=== PATIENT | female | born 1955 | race Caucasian/White ===

== ENCOUNTER 2017-11-19 07:53 | Emergency (ER) | payer BC ==
[2017-11-19] MEDS ORDERED: NS 0.9% 1000 ML* 1,000 ML IV ONE (08:39)
[2017-11-19] MEDS ORDERED: Morphine INJ* 10 MG/ML 1 ML CARPUJECT IV ONE (08:42)
[2017-11-19] MEDS ORDERED: Metoclopramide IV* 5 MG/ML 2 ML VIAL IV ONE (08:42)
[2017-11-19 09:18] LABS: ABS Basophils 0 10^3/ul (0-0.2); ABS Eosinophils 0.1 10^3/ul (0-0.6); ABS Lymphocytes 1.3 10^3/ul (1.0-4.8); ABS Monocytes 0.6 10^3/ul (0-0.8); ABS Neutrophils 8.7 10^3/ul (1.5-7.7); ABS Nucleated RBC 0 10^3/ul; Eosinophil % 1.2 % (0-6); Hematocrit 38 % (35-47); Hemoglobin 12.8 g/dl (12.0-16.0); Mean Corpuscular HGB Conc 34 g/dl (31-36); Mean Corpuscular Hemoglobin 30 pg (27-31); Mean Corpuscular Volume 88 fL (80-97); Mean Platelet Volume 8.9 um3 (7.4-10.4); Nucleated Red Blood Cells % 0.1; Platelet Count 224 10^3/ul (150-450); Red Blood Count 4.28 10^6/ul (4.0-5.4); Red Cell Distribution Width 13 % (10.5-15); White Blood Count 10.8 10^3/ul (3.5-10.8)
[2017-11-19 09:21] LABS: Urine Appearance Clear; Urine Blood 1+ (Negative); Urine Color Straw; Urine Ketones Negative (Negative); Urine Protein Negative (Negative); Urine Specific Gravity 1.005 (1.010-1.030); Urine Urobilinogen Negative (Negative)
[2017-11-19 09:35] LABS: EGFR Non-African American 70.1 (>60)
[2017-11-19] MEDS ORDERED: Iohexol 300* (CONTRAST) 10 ML SDV IV ONE (10:46)
--- NOTE | 2017-11-19 11:45 | RAD ---
CLINICAL HISTORY: Lower abdominal pain COMPARISON: None TECHNIQUE: Multiple contiguous axial CT scans were obtained of the abdomen and pelvis after the administration of intravenous contrast. Coronal and sagittal multiplanar reformations are submitted for review. Oral contrast was administered. Delayed images were obtained through the abdomen and pelvis. FINDINGS: LUNG BASES: The lung bases are clear. LIVER: There is a simple cyst of the liver. BILE DUCTS: There is no intrahepatic or extrahepatic biliary dilatation. GALLBLADDER: The gallbladder is normal, without pericholecystic inflammatory change. PANCREAS: The pancreas is normal, without mass or ductal dilatation. SPLEEN: Normal in size and appearance. UPPER GI TRACT: Evaluation of the gastrointestinal tract is limited by incomplete gastric distention. The upper GI tract is unremarkable. SMALL BOWEL AND MESENTERY: The small bowel is normal in contour, course, and caliber. There is no obstruction or dilatation. COLON: There is mucosal thickening of the rectum and distal sigmoid colon. There is a diverticulum of the distal sigmoid colon. There is straightening of the pelvic floor fascia with a small amount of pericolonic fluid tracking along the fascia. ADRENALS: Normal bilaterally. KIDNEYS: The kidneys are normal in shape, size, contour, and axis. There is no hydronephrosis or nephrolithiasis. BLADDER: The bladder is smooth in contour. PELVIC ORGANS: The pelvic organs are not visualized. AORTA: There is mild calcific atherosclerotic disease of the abdominal aorta and its branches, without aneurysmal dilatation IVC: Unremarkable LYMPH NODES: There is no lymphadenopathy by size criteria. ABDOMINAL WALL: There is no evidence for abdominal wall hernia. BONES AND SOFT TISSUES: Degenerative changes are noted of the spine most pronounced at L5-S1 OTHER: None IMPRESSION: THERE IS MUCOSAL THICKENING OF THE DISTAL SIGMOID COLON AND RECTUM WITH PERICOLONIC INFLAMMATORY CHANGE CONSISTENT WITH COLITIS/PROCTITIS, THOUGH DIVERTICULITIS IS WITHIN THE DIFFERENTIAL THERE IS A DIVERTICULUM OF THE DISTAL SIGMOID COLON IN THIS REGION. THERE IS NO LOCULATED FLUID COLLECTION TO SUGGEST ABSCESS.
[2017-11-19] MEDS ORDERED: metroNIDAZOLE TAB* 250 MG PO ONE (12:05)
[2017-11-19] MEDS ORDERED: Ciprofloxacin TAB* 500 MG PO ONE (12:05)
[2017-11-19 12:38] VITALS: BP 159/79
--- NOTE | 2017-11-19 13:54 | ED ---
Corey Bryson Julia, scribed for Alida Calderón MD on 11/19/17 at 0812 . Abdominal Pain/Female - HPI Summary HPI Summary: This patient is a 62 year old F presenting to [facility] accompanied by with a chief complaint of sudden lower abdominal pain since 01:00 today upon waking up that is worse on the right. Patient reports, chills, and body aches on that are currently resolved. She reports current low back pain. Patient denies dysuria, vomiting, CP, and SOB. PMHx includes a hysterectomy and appendectomy. Medications reviewed with patient. - History of Current Complaint Chief Complaint: EDAbdPain Stated Complaint: ABD PAIN Hx Obtained From: Patient ?: No - hysterectomy Onset/Duration: Sudden Onset, Lasting Hours Timing: Constant Pain Intensity: 6 Pain Scale Used: 0-10 Numeric Location: Discrete At: RLQ, Other - lower abdomen Radiates: Yes Radiates to: Back Aggravating Factor(s): Other: - jumping/bumping Associated Signs and Symptoms: Positive: Fever, Back Pain. Negative: Chest Pain , Urinary Symptoms, Vomiting Allergies/Adverse Reactions: Allergies Allergy/AdvReac Type Severity Reaction Status Date / Time amoxicillin [From Augmentin] Allergy Diarrhea Verified 11/19/17 07:55 clavulanic acid Allergy Diarrhea Verified 11/19/17 07:55 [From Augmentin] Home Medications: Home Medications Aspirin EC TAB* [Ecotrin EC TAB*] 325 mg PO DAILY 11/19/17 [History Confirmed ] Cetirizine* [ZyrTEC 10 MG TAB*] 10 mg PO DAILY 11/19/17 [History Confirmed 11/19] Folic Acid TAB* [Folvite TAB*] 400 mcg PO DAILY 11/19/17 [History Confirmed ] Pyridoxine TAB* [Vitamin B6 TAB*] 100 mg PO DAILY 11/19/17 [History Confirmed ] Ranitidine TAB (NF) [Zantac TAB (NF)] 150 mg PO DAILY 11/19/17 [History Confirmed 11/19/17] PMH/Surg Hx/FS Hx/Imm Hx Endocrine/Hematology History: Reports: Other Endocrine/Hematological Disorders - antiphospholipid syndrome, currently resolved - Surgical History Surgery Procedure, Year, and Place: hysterectomy. appendectomy Infectious Disease History: No Infectious Disease History: Denies: Traveled Outside the [place] in Last 30 Days - Social History Occupation: Employed Full-time Alcohol Use: Daily Alcohol Amount: 2 beers, denies withdrawl symptoms without etoh use Substance Use Type: Reports: None Smoking Status (MU): Former Smoker Review of Systems Positive: Chills Negative: Chest Pain Negative: Shortness Of Breath Positive: Abdominal Pain. Negative: Vomiting Negative: dysuria Positive: Myalgia - back pain, body aches All Other Systems Reviewed And Are Negative: Yes Physical Exam - Summary Physical Exam Summary: GENERAL: Patient is a well developed and nourished F who is lying comfortable in the stretcher. Patient is not in any acute respiratory distress. HEAD AND FACE: Normocephalic EYES: PERRLA, EOMI x 2. EARS: Hearing grossly intact. MOUTH: Oropharynx within normal limits. NECK: Supple, trachea is midline, no adenopathy, no JVD, no carotid bruit. CHEST: Symmetric, no tenderness at palpation LUNGS: Clear to auscultation bilaterally. No wheezing or crackles. CVS: Regular rate and rhythm, S1 and S2 present, no murmurs or gallops appreciated. ABDOMEN: Soft,with diffuse tenderness with palpation that is worse in the RLQ. Bowel sounds are normal. No abdominal abnormal pulsations. EXTREMITIES: Full ROM in all major joints, no edema, no cyanosis or clubbing. NEURO: Alert and oriented x 3. No acute neurological deficits. Speech is normal and follows commands. SKIN: Dry and warm Triage Information Reviewed: Yes Vital Signs On Initial Exam: Initial Vitals Temp Pulse Resp BP Pulse Ox 98 F 91 16 181/100 98 11/19/17 07:59 11/19/17 07:59 11/19/17 07:59 11/19/17 07:59 11/19/17 07:59 Vital Signs Reviewed: Yes Diagnostics - Vital Signs Vital Signs Temp Pulse Resp BP Pulse Ox 11/19/17 07:59 98 F 91 16 181/100 98 - Laboratory Lab Results: Lab Results 11/19/17 11/19/17 11/19/17 Range/Units 08:50 08:53 08:53 WBC 10.8 (3.5-10.8) 10^3/ul RBC 4.28 (4.0-5.4) 10^6/ul Hgb 12.8 (12.0-16.0) g/dl Hct 38 (35-47) % MCV 88 (80-97) fL MCH 30 (27-31) pg MCHC 34 (31-36) g/dl RDW 13 (10.5-15) % Plt Count 224 (150-450) 10^3/ul MPV 8.9 (7.4-10.4) um3 Neut % (Auto) 80.8 (38-83) % Lymph % (Auto) 12.0 L (25-47) % Barry % (Auto) 5.6 (0-7) % Eos % (Auto) 1.2 (0-6) % Baso % (Auto) 0.4 (0-2) % Absolute Neuts (auto) 8.7 H (1.5-7.7) 10^3/ul Absolute Lymphs (auto) 1.3 (1.0-4.8) 10^3/ul Absolute Monos (auto) 0.6 (0-0.8) 10^3/ul Absolute Eos (auto) 0.1 (0-0.6) 10^3/ul Absolute Basos (auto) 0 (0-0.2) 10^3/ul Absolute Nucleated RBC 0 10^3/ul Nucleated RBC % 0.1 Sodium 139 (139-145) mmol/L Potassium 4.0 (3.5-5.0) mmol/L Chloride 105 (101-111) mmol/L Carbon Dioxide 27 (22-32) mmol/L Anion Gap 7 (2-11) mmol/L BUN 13 (6-24) mg/dL Creatinine 0.83 (0.51-0.95) mg/dL Est GFR ( Amer) 90.2 (>60) Est GFR (Non-Af Amer) 70.1 (>60) BUN/Creatinine Ratio 15.7 (8-20) Glucose 99 (70-100) mg/dL Lactic Acid (0.5-2.0) mmol/L Calcium 9.1 (8.6-10.3) mg/dL Total Bilirubin 0.50 (0.2-1.0) mg/dL AST 21 (13-39) U/L ALT 19 (7-52) U/L Alkaline Phosphatase 79 (34-104) U/L C-Reactive Protein 80.39 H (< 5.00) mg/L Total Protein 7.4 (6.4-8.9) g/dL Albumin 4.0 (3.2-5.2) g/dL Globulin 3.4 (2-4) g/dL Albumin/Globulin Ratio 1.2 (1-3) Lipase 16 (11.0-82.0) U/L Urine Color Straw Urine Appearance Clear Urine pH 6.0 (5-9) Ur Specific [place] 1.005 L (1.010-1.030) Urine Protein Negative (Negative) Urine Ketones Negative (Negative) Urine Blood 1+ A (Negative) Urine Nitrate Negative (Negative) Urine Bilirubin Negative (Negative) Urine Urobilinogen Negative (Negative) Ur Leukocyte Esterase Negative (Negative) Urine WBC (Auto) Absent (Absent) Urine RBC (Auto) Trace(0-2/hpf) (Absent) Ur Squamous Epith Cells Present A (Absent) Urine Bacteria Absent (Absent) Urine Glucose Negative (Negative) 11/19/17 Range/Units 08:53 WBC (3.5-10.8) 10^3/ul RBC (4.0-5.4) 10^6/ul Hgb (12.0-16.0) g/dl Hct (35-47) % MCV (80-97) fL MCH (27-31) pg MCHC (31-36) g/dl RDW (10.5-15) % Plt Count (150-450) 10^3/ul MPV (7.4-10.4) um3 Neut % (Auto) (38-83) % Lymph % (Auto) (25-47) % Barry % (Auto) (0-7) % Eos % (Auto) (0-6) % Baso % (Auto) (0-2) % Absolute Neuts (auto) (1.5-7.7) 10^3/ul Absolute Lymphs (auto) (1.0-4.8) 10^3/ul Absolute Monos (auto) (0-0.8) 10^3/ul Absolute Eos (auto) (0-0.6) 10^3/ul Absolute Basos (auto) (0-0.2) 10^3/ul Absolute Nucleated RBC 10^3/ul Nucleated RBC % Sodium (139-145) mmol/L Potassium (3.5-5.0) mmol/L Chloride (101-111) mmol/L Carbon Dioxide (22-32) mmol/L Anion Gap (2-11) mmol/L BUN (6-24) mg/dL Creatinine (0.51-0.95) mg/dL Est GFR ( Amer) (>60) Est GFR (Non-Af Amer) (>60) BUN/Creatinine Ratio (8-20) Glucose (70-100) mg/dL Lactic Acid 1.1 (0.5-2.0) mmol/L Calcium (8.6-10.3) mg/dL Total Bilirubin (0.2-1.0) mg/dL AST (13-39) U/L ALT (7-52) U/L Alkaline Phosphatase (34-104) U/L C-Reactive Protein (< 5.00) mg/L Total Protein (6.4-8.9) g/dL Albumin (3.2-5.2) g/dL Globulin (2-4) g/dL Albumin/Globulin Ratio (1-3) Lipase (11.0-82.0) U/L Urine Color Urine Appearance Urine pH (5-9) Ur Specific [place] (1.010-1.030) Urine Protein (Negative) Urine Ketones (Negative) Urine Blood (Negative) Urine Nitrate (Negative) Urine Bilirubin (Negative) Urine Urobilinogen (Negative) Ur Leukocyte Esterase (Negative) Urine WBC (Auto) (Absent) Urine RBC (Auto) (Absent) Ur Squamous Epith Cells (Absent) Urine Bacteria (Absent) Urine Glucose (Negative) Result Diagrams: 11/19/17 08:53 11/19/17 08:53 Lab Statement: Any lab studies that have been ordered have been reviewed, and results considered in the medical decision making process. Re-Evaluation - Re-Evaluation 1 Re-Evaluation Time: 11:55 Comment: Pt is informed with results. Abdominal Pain Fem Course/Dx - Course Course Of Treatment: 62 y/o F presents to ED with abdominal pain. Workup remarkable for elevated C reactive protein at 80.9. CT A/P concerning for colitis vs. diverticulitis. Discussed resutls with paitent in great details. She was give 1 L of IV fluids, Morphine, and Zofran. Pt reports feeling a lot better. Given first dose of Cipro and Flagyl abx here in ED. She was subsequently discharged with 14 day course of abx, pain medication, and Zofran. She was intsructed to follow up with GI. Pt is hemodynamically stable and safe for discharge. Return precautions given - Diagnoses Provider Diagnoses: Colitis Discharge - Sign-Out/Discharge Documenting (check all that apply): Discharge/Admit/Transfer - Discharge Plan Condition: Stable Disposition: HOME Prescriptions: Ciprofloxacin HCl [Cipro] 500 mg PO BID 14 Days #28 tablet metroNIDAZOLE [Flagyl] 500 mg PO TID 14 Days #42 tablet Ondansetron [Zofran Odt] 4 mg PO Q8HR 3 Days #9 tab.rapdis oxyCODONE/Acetam5/325MG PREPAK [Percocet 5/325 TAB*] 1 tab PO Q6HR PRN #12 tab MDD 4 PRN Reason: Pain Patient Education Materials: Diverticulitis (ED), Colitis (ED) Forms: *Work Release Referrals: Edson Luna MD [Medical Doctor] - 1 Week (Follow up with Dr. Luna, regarding your results today. ) - Billing Disposition and Condition Condition: STABLE Disposition: HOME The documentation as recorded by the Corey lopez Julia accurately reflects the service I personally performed and the decisions made by me, Alida Calderón MD.
== END 2017-11-19 12:35 | disposition home or self-care (01) ==
LOC: ED 07:53
DX: K52.9 Noninfective gastroenteritis and colitis, unspecified (principal); Z87.891 Personal history of nicotine dependence
CPT/HCPCS: 36415; 74177; 80053; 81003; 81015; 83605; 83690; 85025; 86140; 87040; 96360; 96374; 96375; 99283; A9270-GY; Q9967

== ENCOUNTER 2018-03-08 08:21 | Emergency (ER) | payer BC ==
--- OUTSIDE RECORDS SUMMARY | 2018-03-08 08:40 | XMS REPORT ---
:1955 External Reference #:[id number] Author Organization [employer] Address [address] [place] [address] [place] [address] Phone [phone] Care Team Providers Name Role Phone Mal Fisher MD Primary Care Physician Unavailable Payers Type Date Identification Numbers Payment Provider Subscriber Commercial Policy Number: [id number] [employer]ets Rashawn Martins PayID: [id number] [address] [address] [place] [address] Problems Description No Information Family History Date Family Member(s) Problem(s) Comments General Cancer General Diabetes General Heart Disease Social History Type Date Description Comments Lives With Boyfriend Occupation Nurse ETOH Use Consumes 1 six pack of beer per day Smoking Patient is a former smoker Exercise Type/Frequency Exercises sporadically Allergies, Adverse Reactions, Alerts Date Description Reaction Status Severity Comments 01/03/2018 Augmentin active 01/03/2018 Cipro active 01/03/2018 Flagyl active 01/03/2018 NKDA inactive Medications Medication Date Status Form Strength Qnty SIG Indications Ordering Provider Folic Acid Active Tablets 800mcg Unknown 000 Vitamin B6 Active Tablets 100mg 1/2 by Unknown 000 mouth every day Aspirin Active Tablets DR 325mg take 1 Unknown 000 daily Aleve Active Tablets 220mg 2 tablets Unknown 000 bid Oxycodone-Neel Hx Tablets 5-325mg 30tabs 1-2 by Ramin Huitron taminophen 018 - mouth Edison, every 4-6 018 hours as needed for post-op pain. max 10 per day Aspirin 06/20/[address] 325mg 30tabs 1 tab bid Ramin Huitron 018 - x 14 days Edison MD Diaz Aspirin Hx Tablets DR 325mg take 1 by Unknown 000 - mouth once a day for 018 two weeks Allergy 0 Hx Tablets 10mg Unknown Relief 000 - 018 Zantac 75 Hx Tablets 150mg take 1 tab Unknown 000 - by mouth at at 018 bedtime Flexeril Hx 10mg 1 q 8 hr Unknown 000 - prn 018 Tramadol HCL Hx Tablets 50mg 1-2 Unknown 000 - tablets by mouth 018 every 6 hours as needed pain Vital Signs Date Vital Result Comment 02/28/2018 Height 64 inches 5'4" Weight 239.00 lb Heart Rate 76 /min BP Systolic Recheck 128 mmHg BP Diastolic Recheck 84 mmHg Respiratory Rate 16 /min Body Temperature 977.0 F BMI (Body Mass Index) 41.0 kg/m2 01/31/2018 Height 64 inches 5'4" Weight 239.00 lb Heart Rate 80 /min BP Systolic Recheck 126 mmHg BP Diastolic Recheck 84 mmHg Respiratory Rate 16 /min Body Temperature 97.9 F BMI (Body Mass Index) 41.0 kg/m2 01/03/2018 Height 64 inches 5'4" Weight 239.00 lb Heart Rate 76 /min BP Systolic Recheck 126 mmHg BP Diastolic Recheck 84 mmHg Respiratory Rate 16 /min Body Temperature 97.9 F BMI (Body Mass Index) 41.0 kg/m2 Results Test Date Test Result H/L Range Note Laboratory test 01/12/2018 Surgical Pathology SEE RESULT BELOW 1 finding 1 SEE RESULT BELOW Name: RASHAWN MARTINS : [address]: Ramin Hogan MD Acct: [id number] Unit: [id number] AGE: 62 Location: OR Re01/12/18 SEX: F Status: REG SDC SPEC: [id number] NELSON: 01/12/18 [facility] [address]: Ramin Hogan MD REQ: [id number] RECD: 01/12/18 STATUS: SOUT _ ORDERED: LEVEL 3 FINAL DIAGNOSIS Knee, right, excision: -- Benign cartilaginous tissue. PRE-OPERATIVE DIAGNOSIS Right knee osteoarthritis, pain, possible loose body. GROSS DESCRIPTION The specimen is received in formalin labeled, Loose Body Right Knee, and consists of two silva-pink irregular rubbery fibrocartilaginous soft tissue fragments aggregating 0.6 x 0.5 by up to 0.2 cm which are entirely submitted in one cassette. Signed by and Reported on: Stefania Wheeler MD 01/14/18 1137 END OF REPORT DEPARTMENT OF PATHOLOGY, [address] [place] [address] Nacho Pan M.D. Director [facility] # [id number] Procedures Date CPT Code Description Status 01/12/2018 34187 Arthroscopy,Knee,Meniscectomy Medial Or Lateral Completed 01/12/2018 79355 Arthroscopy,Knee,Meniscectomy Medial Or Lateral Completed Encounters Type Date Location Provider CPT E/M Dx Office Visit 01/03/2018 [facility] Ramin Hogan, [address] M25.561 9:00a Of [facility] AT [facility] [place] M23.41 M17.11 Plan of Care Future Appointment(s):03/21/2018 9:15 am - Ramin Hogan MD at [facility] AT Kfqhdqku38/06/2018 - Ramin Hogan, [id number] Oth tear of medial meniscus, current injury, r knee, subsFollow up: Follow up: 4 [id number] Loose body in knee, right kneeM17.11 Unilateral primary osteoarthritis, right knee
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
[2018-03-08] MEDS ORDERED: Lidocaine 1%* 5 ML VIAL INJ ONE ×2 (10:00→12:00)
--- NOTE | 2018-03-08 10:29 | RAD ---
INDICATION: Possible aspiration. COMPARISON: November 19, [address] TECHNIQUE: Dual energy PA and routine lateral views of the chest were obtained. REPORT: Clear lungs and pleural spaces. Negative for pneumothorax. The heart, pulmonary vasculature, and mediastinal contours are unremarkable. Negative for free air beneath the diaphragm. Unremarkable osseous structures and soft tissue contours. IMPRESSION: #. No evidence for acute intrathoracic disease.
[2018-03-08] MEDS ORDERED: Piperacillin/Tazobac ADVAN(*) 3.375 GM in NS 0.9% 100 ML* 100 ML IVPB ONE (14:27)
--- NOTE | 2018-03-08 15:28 | PN ---
Progress Note - Progress Note Date of Service: 03/08/18 Note: Laceration repair: 7 cm, gaping, dirty laceration noted to left upper arm on the volar aspect. Wound was extensively irrigated with a liter of normal saline and scrubbed with Betadine. Typical sterile fashion was used. Wound was loosely approximated with 9 nylon 4-0 sutures. 2 cm linear laceration noted to the left mid lateral aspect of leg was also extensively irrigated and cleaned. 3 4-0 nylon sutures were placed. There are 2 superficial, linear, 1 cm lacerations noted in between the second and third toes of right foot extending slightly to the foot. These 2 wounds were cleaned in the same fashion and approximated with Steri-Strips.
[2018-03-08 15:44] VITALS: BP 118/68
== END 2018-03-08 15:42 | disposition home or self-care (01) ==
LOC: ED 08:21
DX: S41.122A Laceration with foreign body of left upper arm, initial encounter (principal); S71.122A Laceration with foreign body, left thigh, initial encounter; S91.311A Laceration without foreign body, right foot, initial encounter; T14.8XXA Other injury of unspecified body region, initial encounter; X58.XXXA Exposure to other specified factors, initial encounter; Y93.89 Activity, other specified; Y92.833 Campsite as the place of occurrence of the external cause; Z88.1 Allergy status to other antibiotic agents; Z88.0 Allergy status to penicillin; Z87.891 Personal history of nicotine dependence
CPT/HCPCS: 12034; 71046; 99282; J2543

== ENCOUNTER 2020-03-28 08:07 | Inpatient (IN) ==
[~2020-03-28 08:07] MED LIST: Buffered Lidocaine 1% SYRIN 1 ml INTRADERM ONE; Bupivacaine 0.5% SDV PF 30ML VIAL ONE; EPHEDrine (Pressors) 50 MG/ML VIAL ONE; Famotidine IV 10 MG/ML 2 ml VIAL (20 mg) IV ONE; Lactated Ringers 1000 ml BAG 1,000 ML IV SCH; Phenylephrine 40 mcg/mL 10mL (400mcg) SYRINGE ONE; Propofol 10 MG/ML 20 ML BTL ONE; Rocuronium 50 mg VIAL 10 mg/ml 5 ml VIAL (50 mg) ONE; Sodium Citrate/Citric Acid LIQ 15 ML UDC PO ONE; Sterile Water for Inj 10 ML ONE
[2020-03-28] MEDS ORDERED: Midazolam 5 mg/5 ml VIAL 1 mg/ml 5 ml VIAL (5 mg) ONE (08:34)
[2020-03-28] MEDS ORDERED: Buffered Lidocaine 1% SYRIN 1 ml INTRADERM ONE (08:41)
[2020-03-28] MEDS ORDERED: Famotidine IV 10 MG/ML 2 ml VIAL (20 mg) ONE (08:41)
[2020-03-28] MEDS ORDERED: ROPIVACAINE 5 MG/ML 30 ML BTL (0.5%) ONE ×2 (08:46→09:00)
[2020-03-28] MEDS ORDERED: Lidocaine 1% MPF 5 ML VIAL ONE (09:00)
[2020-03-28] MEDS ORDERED: ceFAZolin 2 GM PREMIX 2 GM/50 ML BAG ONE (10:17)
[2020-03-28] MEDS ORDERED: Naloxone 0.4 mg VIAL 0.4 mg/ml 1 ml VIAL IV PRN (11:09)
[2020-03-28] MEDS ORDERED: HYDROmorphone 1 MG/1 ML SYRINGE IV PRN (11:09)
[2020-03-28] MEDS ORDERED: Ondansetron 4 mg VIAL 2 MG/ML 2 ml VIAL IV PRN ×2 (11:09→12:58)
[2020-03-28] MEDS ORDERED: fentaNYL 100 mcg/2 ml 50 MCG/ML VIAL IV PRN (11:09)
[2020-03-28] MEDS ORDERED: Propofol 10 MG/ML 20 ML BTL ONE (11:33)
[2020-03-28] MEDS ORDERED: oxyCODONE/Acetamin 5/325 mg TAB PO PRN (12:58)
[2020-03-28] MEDS ORDERED: Ondansetron ODT 4 mg TAB 4 MG TAB PO PRN (12:58)
[2020-03-28] MEDS ORDERED: Lactulose 30 ml UDC PO PRN (12:58)
[2020-03-28] MEDS ORDERED: Morphine 2 MG/ML SYRINGE IV PRN (12:58)
[2020-03-28] MEDS ORDERED: Polyethylene Glycol 3350 17 GM PACKET PO PRN (12:58)
[2020-03-28] MEDS ORDERED: Magnesium Hydroxide LIQ 30 ML UDC PO PRN (12:58)
[2020-03-28] MEDS ORDERED: diPHENhydraMINE IV 50 MG/ML 1 ml VIAL (BENADRYL) IV PRN (12:58)
[2020-03-28] MEDS ORDERED: diPHENhydraMINE 25 mg TAB PO PRN (12:58)
[2020-03-28] MEDS: oxyCODONE/Acetamin 5/325 mg TAB PO PRN (17:49)
[2020-03-28] MEDS: ceFAZolin 1 GM ADVAN 1 GM in NS 0.9% 50 ML 50 ML IVPB SCH (19:01)
[2020-03-28] MEDS: Magnesium Hydroxide LIQ 30 ML UDC PO SCH (20:37)
[2020-03-29] MEDS: Lactated Ringers 1000 ml BAG 1,000 ML IV SCH ×2 (02:14→10:46)
[2020-03-29] MEDS: ceFAZolin 1 GM ADVAN 1 GM in NS 0.9% 50 ML 50 ML IVPB SCH ×2 (02:14→10:46)
[2020-03-29] MEDS ORDERED: NS 0.9% 1000 ml BAG 1,000 ML IV ONE (05:30)
[2020-03-29 06:04] LABS: Hematocrit 28 % (35-47); Hemoglobin 9.7 g/dL (12.0-16.0); Mean Platelet Volume 9.1 fL (7.4-10.4); Platelet Count 164 10^3/uL (150-450)
[2020-03-29 06:25] LABS: BUN/Creatinine Ratio 17.7 (8-20); Calcium 8.3 mg/dL (8.6-10.3); EGFR African American 89.2 (>60); EGFR Non-African American 73.7 (>60); Potassium 3.9 mmol/L (3.5-5.0)
[2020-03-29] MEDS: oxyCODONE/Acetamin 5/325 mg TAB PO PRN (07:57)
[2020-03-29] MEDS ORDERED: Vitamin THERAPEUTIC TAB PO SCH (09:00)
[2020-03-29] MEDS ORDERED: Aspirin EC 325 mg TAB.EC PO SCH (09:00)
[2020-03-29] MEDS: Magnesium Hydroxide LIQ 30 ML UDC PO SCH (09:28)
[2020-03-29] MEDS ORDERED: Lactated Ringers 500 ml BAG 500 ML IV SCH (10:00)
[2020-03-29] MEDS ORDERED: Lactated Ringers 500 ml BAG 500 ML IV ONE (10:15)
[2020-03-29 11:37] VITALS: BP 130/63
[2020-03-29] MEDS ORDERED: HYDROcodone/ACETAMIN 5/325 mg TAB PO PRN ×2 (11:44→11:45)
== END 2020-03-29 14:42 | disposition home or self-care (01) | DRG 302 ==
LOC: AA 08:07 → SSU 15:40
PROVIDERS: ADMIT Orthopaedic Surgery Adult Reconstructive Orthopaedic Surgery; ATTEND Orthopaedic Surgery Adult Reconstructive Orthopaedic Surgery

== ENCOUNTER 2023-07-23 12:23 | Observation (INO) ==
[~2023-07-23 12:23] MED LIST changes: -Buffered Lidocaine 1% SYRIN 1 ml INTRADERM ONE; -Bupivacaine 0.5% SDV PF 30ML VIAL ONE; -EPHEDrine (Pressors) 50 MG/ML VIAL ONE; -Famotidine IV 10 MG/ML 2 ml VIAL (20 mg) IV ONE; +Iodixanol 320 (CONTRAST) 100 ML SDV IV ONE; -Lactated Ringers 1000 ml BAG 1,000 ML IV SCH; -Phenylephrine 40 mcg/mL 10mL (400mcg) SYRINGE ONE; -Propofol 10 MG/ML 20 ML BTL ONE; -Rocuronium 50 mg VIAL 10 mg/ml 5 ml VIAL (50 mg) ONE; -Sodium Citrate/Citric Acid LIQ 15 ML UDC PO ONE; -Sterile Water for Inj 10 ML ONE
[2023-07-23] MEDS ORDERED: Lactated Ringers 1000 ml BAG 1,000 ML IV ONE (12:40)
[2023-07-23 13:05] LABS: ABS Basophils 0.1 10^3/uL (0.0-0.1); ABS Eosinophils 0.2 10^3/uL (0.0-0.5); ABS Lymphocytes 1.6 10^3/uL (1.0-4.8); ABS Monocytes 0.5 10^3/uL (0.0-0.9); Eosinophil % 2.5 %; Hematocrit 39.3 % (35-45); Hemoglobin 13.3 g/dL (11.5-14.3); Mean Corpuscular Hemoglobin 29.5 pg (27-33); Mean Corpuscular Hgb Conc 33.9 g/dL (31-36); Mean Corpuscular Volume 87.1 fL (80-97); Mean Platelet Volume 8.4 fL (7.5-11.2); Nucleated Red Blood Cells % 0.1 %/100WBC (0.0-0.8); Platelet Count 272 10^3/uL (150-450); Red Blood Count 4.51 10^6/uL (3.63-4.92); White Blood Count 8.4 10^3/uL (3.8-11.8)
[2023-07-23 13:15] LABS: Activated Partial Thrombo Time 28.1 seconds (26.0-38.0); INR 0.96 (0.83-1.13)
[2023-07-23 13:18] LABS: Albumin 4.5 g/dL (3.2-5.2); Albumin/Globulin Ratio 1.3 (1-3); Calcium 9.1 mg/dL (8.6-10.3); Creatinine, Serum 0.87 mg/dL (0.51-0.95); Globulin 3.4 g/dL (2-4); HDL Cholesterol 60.9 mg/dL; Indirect Bilirubin 0.4 mg/dL (0.3-1.0); Total Bilirubin 0.4 mg/dL (0.2-1.0); Total Protein 7.9 g/dL (6.4-8.9); eGFR CKD-EPI 73.4 (>60)
[2023-07-23] MEDS ORDERED: Albuterol HFA INHALER 8 gm MDI INH PRN (15:31)
[2023-07-23] MEDS: Aspirin EC 81 mg TAB.EC (enteric coated) PO SCH (16:37)
[2023-07-23] MEDS ORDERED: Enoxaparin 40 MG/0.4 ML SYR SUBCUT SCH (17:00)
[2023-07-24 07:21] LABS: Calcium 8.7 mg/dL (8.6-10.3); Creatinine, Serum 0.76 mg/dL (0.51-0.95); Magnesium 2.1 mg/dL (1.9-2.7); Potassium 4.1 mmol/L (3.5-5.0); eGFR CKD-EPI 86.4 (>60)
[2023-07-24] MEDS: Aspirin EC 81 mg TAB.EC (enteric coated) PO SCH (09:28)
[2023-07-24 11:09] VITALS: BP 140/84
[2023-07-27 13:42] LABS: Phospholipid Ab IgG < 9.4 GPL; Phospholipid Ab IgM, S < 9.4 MPL
[2023-07-27 15:28] LABS: DRVVT Screen Ratio 0.93 ratio (<1.20); LAC APTT 28 sec (25 - 37); Prothrombin Time(LAC) 11.2 sec (9.4 - 12.5)
[2023-07-28 20:34] LABS: Beta 2 Glycoprotein IgG <9.4 SGU
== END 2023-07-24 12:00 | disposition short-term general hospital (02) ==
LOC: ED 12:23 → EDHOLD 12:23 → MEDTELE 14:57
PROVIDERS: ADMIT Hospitalist; ATTEND Internal Medicine Hematology & Oncology